=== PATIENT | female | born 1950 | race Asian ===

== ENCOUNTER → 2017-05-23 | Outpatient (CLI) | payer OTHER ==
[~2017-05-23] MED LIST: B-100 COMPLEX1 EAC1 PO; CALCIUM 500 +1 EAC6 PO; CLARITIN10 MG PO; DIAZEPAM 10 MG10 M1 PO; ESTRACE1 MG PO; MULTIVITAMINS PO; NASONEX17 GM IH; OXYCONTIN CR 1010 M1 PO; PROTONIX40 M2 PO; PROVIGIL 200 M200 M1 PO; VITAMIN D1000 UNI1 PO
== END ==
LOC: RAD 13:56
DX: Z12.31 Encounter for screening mammogram for malignant neoplasm of breast (principal)

== ENCOUNTER → 2018-06-22 | Outpatient (CLI) | payer OTHER | LOC: RAD 12:22 | DX: Z12.31 Encounter for screening mammogram for malignant neoplasm of breast (principal) ==

== ENCOUNTER → 2020-05-15 | Outpatient (CLI) | payer OTHER | LOC: RAD 08:16 | PROVIDERS: ATTEND Internal Medicine | DX: Z12.31 Encounter for screening mammogram for malignant neoplasm of breast (principal) ==